=== PATIENT | male | born 1985 | race Caucasian/White ===

== ENCOUNTER 2016-07-19 23:50 | Emergency (ER) | payer SELFPAY ==
[2016-07-20 00:24] VITALS: PULSE 60; RESP 16; TEMP 97.6; O2SAT 97
[2016-07-20 00:26] VITALS: BP 116/70
--- NOTE | 2016-07-20 00:59 | C.PDOC ---
History Of Present Illness Patient is a 30 year old male who presents to the ER with a complaint of right ear ache and nasal congestion for the past week. Denies fever or chills. Time Seen by Provider: 07/20/16 00:33 Chief Complaint (Nursing): ENT Problem History Per: Patient History/Exam Limitations: None Onset/Duration Of Symptoms: Days (7) Current Symptoms Are (Timing): Still Present Quality (Ear): Other (Ache) Symptoms Have Been: Continuous Anticoagulant/Antiplatlet Use?: Unknown Recent Aspirin Use: Unknown Past Medical History Reviewed: Historical Data, Nursing Documentation, Vital Signs Vital Signs: Last Vital Signs Temp 97.6 F 07/20/16 00:22 Pulse 60 07/20/16 00:22 Resp 16 07/20/16 00:22 BP 116/70 07/20/16 00:22 Pulse Ox 97 07/20/16 00:59 - Medical History PMH: No Chronic Diseases Surgical History: No Surg Hx Family History: States: Unknown Family Hx - Social History Hx Alcohol Use: No Hx Substance Use: No - Immunization History Hx Tetanus Toxoid Vaccination: No Hx Influenza Vaccination: No Hx Pneumococcal Vaccination: No Review Of Systems Constitutional: Negative for: Fever, Chills ENT: Positive for: Ear Pain (right), Nose Congestion Physical Exam - Physical Exam Appears: Non-toxic Skin: Normal Color, Warm, Dry Head: Atraumatic, Normacephalic Ear(s): Left: Normal, Right: Other (redness to canal, minimal effusion to TM) Nose: Normal Oral Mucosa: Moist Neck: Normal, Supple Chest: Symmetrical, No Tenderness Cardiovascular: Rhythm Regular, No Murmur Respiratory: Normal Breath Sounds, No Rales, No Rhonchi, No Wheezing Neurological/Psych: Oriented x3, Normal Speech, Normal Cognition ED Course And Treatment O2 Sat by Pulse Oximetry: 97 (Room air) Pulse Ox Interpretation: Normal Disposition Counseled Patient/Family Regarding: Diagnosis, Need For Followup, Rx Given - Disposition Referrals: Tucker Scott MD [Staff Provider] - Disposition: HOME/ ROUTINE Disposition Time: 00:57 Condition: STABLE Additional Instructions: Take meds as directed Return to ER if worse Prescriptions: Amoxicillin/Clavulanate [Augmentin 500 MG-125 MG] 1 tab PO TID #21 tab Ibuprofen [Motrin] 600 mg PO Q6H #20 tab Instructions: Otitis Media (ED) - Clinical Impression Clinical Impression: Otitis media - Scribe Statement The provider has reviewed the documentation as recorded by the Scribe Carrillo Sands All medical record entries made by the Franciibe were at my direction and personally dictated by me. I have reviewed the chart and agree that the record accurately reflects my personal performance of the history, physical exam, medical decision making, and the department course for this patient. I have also personally directed, reviewed, and agree with the discharge instructions and disposition.
== END 2016-07-20 01:08 | disposition home or self-care (01) ==
LOC: C.ER 23:50
DX: H66.91 Otitis media, unspecified, right ear (principal)